=== PATIENT | male | born 1990 | race African-American/Black ===

== ENCOUNTER 2018-08-29 00:16 | Emergency (ER) | payer OTHER ==
[2018-08-29] MEDS: HYDROCODONE/APAP (5/325) TAB PO (05:06)
[2018-08-29] MEDS: KETOROLAC 30 MG INJ IM (05:06)
[2018-08-29] MEDS: AMOXICILLIN/CLAV 875 MG TAB PO (05:18)
== END 2018-08-29 05:36 | disposition home or self-care (01) ==
LOC: FTE 00:16
DX: K04.7 Periapical abscess without sinus (principal)
CPT/HCPCS: 96372; 99284-25